=== PATIENT | male | born 1950 | race Caucasian/White ===

== ENCOUNTER 2017-02-18 03:53 | Emergency (ER) | payer MEDICAID | END 2017-02-18 07:24 | disposition home or self-care (01) | LOC: ER 03:53 | DX: M25.512 Pain in left shoulder (principal); M54.5 Low back pain; M25.562 Pain in left knee; M25.561 Pain in right knee; M54.2 Cervicalgia; I10 Essential (primary) hypertension; E11.9 Type 2 diabetes mellitus without complications; W01.0XXA Fall on same level from slipping, tripping and stumbling without subsequent striking against object, initial encounter; Y93.01 Activity, walking, marching and hiking; Y92.89 Other specified places as the place of occurrence of the external cause; Y99.8 Other external cause status | CPT/HCPCS: 82962; 99282 ==